=== PATIENT | female | born 1940 | race Caucasian/White ===

== ENCOUNTER 2025-10-09 08:35 | Day surgery (SDC) | payer MEDICARE ==
[~2025-10-09] VITALS: Ht 157.5 cm; Wt 66.0 kg
[~2025-10-09 08:35] MED LIST: 8 HOUR PAIN RE650 MG PO; ASPIRIN EC81 MG PO; CALCIUM600 MG PO; CEFAZOLIN SODIUM 2 GM in SODIUM CHLORIDE 0.9% 100 ML IV SCH; HEParin SOD (PORCINE) 5,000 UNIT/ML SDV SUB-Q SCH; IBLOOD GLUCOSE TEST STRIP 1 EA TEST VI PRN; ICAPS AREDS SO1 EACH PO; LACTATED RINGER'S 1,000 ML IV SCH; LEVOTHYROXINE125 MCG PO; LIDOCAINE HCL 1% 5 ML SDV INJ ONE; LIPITOR10 MG PO; NEURONTIN100 MG PO; OMEPRAZOLE20 MG PO; OXYBUTYNIN CHLOR5 MG PO; TYLENOL EXTRA500 MG PO
[2025-10-09 09:05] VITALS: BP 143/74
[2025-10-09] MEDS ORDERED: IBLOOD GLUCOSE TEST STRIP 1 EA TEST VI PRN (10:30)
[2025-10-09] MEDS ORDERED: NALOXONE HCL 0.4 MG SYR IV PRN (10:30)
[2025-10-09] MEDS ORDERED: fentaNYL citrate 50 MCG/ML SDV IV PRN (10:30)
[2025-10-09] MEDS ORDERED: Methylene Blue 100 MG/10 ML SDV ONE (11:38)
[2025-10-09] MEDS ORDERED: fentaNYL citrate 100 MCG/2 ML VIAL ONE ×2 (11:41→13:45)
[2025-10-09] MEDS ORDERED: LIDOCAINE HCL 2% 5 ML SDV ONE (11:41)
[2025-10-09] MEDS ORDERED: SODIUM CHLORIDE 0.9% 20 ML IV ONE (11:46)
[2025-10-09] MEDS ORDERED: GLUCAGON,HUMAN RECOMBINANT 1 MG/ML VIAL ONE (12:51)
[2025-10-09] MEDS ORDERED: LACTATED RINGER'S 1,000 ML IV ONE (13:00)
[2025-10-09] MEDS ORDERED: ACETAMINOPHEN 1,000 MG/100 ML VIAL ONE (13:32)
[2025-10-09] MEDS ORDERED: TYLENOL EXTRA500 MG PO (14:09)
[2025-10-09] MEDS ORDERED: MOTRIN IB200 MG PO (14:10)
[2025-10-09] MEDS ORDERED: PERCOCET 7.5-31 EACH PO (14:10)
--- NOTE | 2025-10-09 14:12 | NUR ---
10/09/25 1412 Chrissie Reece 1347 PT ARRIVED TO PACU PT MOANING AND RESTING IN BED. RN AND WEATHER REPORTER REASSURING PT AND TRYING TO REORIENT PT TO PACU. 1355 RN CONTINUES TO MINING CAPTAIN PT ON SLOW BREATHING AND RELAXING, PT DENIES PAIN AND NAUSEA. HOB INCREASED AND PT EATING ICE CHIP DUE TO DRY MOUTH. 1405 PT MORE RELAXED AND RESTING IN BED, PT ASKING QUESTIONS AND RN CONTINUES TO REORIENT PT TO PACU AND TIME. PT REPORTS TIGHTNESS IN SURGICAL SITE BUT NO PAIN. "I FEEL LIKE I CAN;T MOVE MY LEGS." SCD EDUCATION GIVEN AND PT MOVES LEG WITH NO PROBLEMS.
[2025-10-09] MEDS ORDERED: OXYCODONE/APAP 7.5/325 TAB PO PRN (14:15)
[2025-10-09] MEDS ORDERED: IBUPROFEN 600 MG TAB PO PRN (14:15)
[2025-10-09] MEDS ORDERED: ACETAMINOPHEN 500 MG TAB PO PRN (14:15)
[2025-10-09] MEDS ORDERED: LACTATED RINGER'S 1,000 ML IV SCH (14:15)
[2025-10-09] MEDS ORDERED: SEVOFLURANE 250 ML BTL INH ONE (14:24)
[2025-10-09 14:40] VITALS: BP 137/61
--- NOTE | 2025-10-09 14:48 | NUR ---
1443: PATIENT BACK IN DAY SURGERY ROOM FROM PACU. DENIES PAIN, BUT STATES SHE FEELS PRESSURE IN RIGHT BREAST. VS CHECKED. RIGHT BREAST AND RIGHT AXILLA DRESSING WITH SCANT AMOUNT OF DRAINAGE. IV SITE WNL. SCDs ON. FAMILY AT BEDSIDE. CALL LIGHT WITHIN REACH. TOLERATING WATER.
--- NOTE | 2025-10-09 15:16 | NUR ---
CHECKED PATIENT. GIVEN COLLEEN CRACKERS TO EAT. PATIENT STATES SHE'S STARTING TO FEEL PAIN AT THE SURGICAL SITES. FAMILY AT BEDSIDE. CALL LIGHT DAPHNE JUAREZ.
--- NOTE | 2025-10-09 15:43 | NUR ---
PATIENT ASSISTED OOB AND TO BATHROOM. VOID WITHOUT DIFFICULTY. GAIT STEADY TO AND FROM ROOM. PATIENT C/O 3/ PAIN IN RIGHT BREAST AND ARMPIT. MEDICATED FOR PAIN WITH 1 TAB OF PERCOCET. FAMILY AT BEDSIDE. CALL LIGHT WITHIN REACH.
[2025-10-09 16:00] VITALS: BP 131/65
--- NOTE | 2025-10-09 16:13 | NUR ---
DISCHARGE INSTRUCTIONS GIVEN TO PATIENT AND FAMILY. ALL QUESTIONS ANSWERED. PATIENT WILL WORK ON GETTING DRESSED WITH HELP FROM FAMILY.
--- NOTE | 2025-10-09 16:30 | NUR ---
1620: PATIENT STATES SHE FEELS PAIN PILL IS STARTING TO WORK. REQUESTS TO GO HOME. 1622: IV DC'D WNL. TIP INTACT. DRESSING APPLIED. 1624: PATIENT DISCHARGED TO HOME VIA WHEELCHAIR WITH FAMILY MEMBERS.
--- NOTE | 2025-10-10 09:06 | OR ---
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 PROCEDURES: 1. Injection of methylene blue for sentinel lymph node identification. 2. Right deep axillary sentinel lymph node biopsy. 3. Right central breast partial mastectomy and oncoplastic closure (tissue transfer technique). ANESTHESIA: General LMA, Mariposa Charity, COMMUNITY DEVELOPMENT WORKER and local 10 mL of 0.25% Marcaine with epinephrine. INDICATION: This 85-year-old white woman is in surprisingly good health and is a patient of Dr. Jovita Redmond. The patient was found to have a central breast mass and mammogram confirmed findings of suspicion, ultrasound performed and biopsy performed confirming infiltrating ductal breast carcinoma, ER, IL positive, HER-2/diana equivocal. I have reviewed the options of management with the patient and her daughter who attends to her. She opts for partial mastectomy, sentinel lymph node biopsy, anticipating consideration for radiation therapy postoperatively despite her advanced age. She understands the risk of operation including but not limited to bleeding, infection, pain, cosmetic deformity, need for additional treatment, as well as possible re-excision depending on margins. Understanding that, she wished to proceed. FINDINGS: The uptake of radionuclide on the film looked quite good, though in practice was slightly challenging. Ultimately, at least one sentinel lymph node was identified which did not have avid uptake of radiotracer or dye, but did have some signal and was rather suspicious axillary. It measured 1.5 to 2 cm and was quite firm, though smooth. There were no other suspicious nodes in the axilla. As regards the tumor, it was a subareolar tumor and took up all of the nipple-areolar complex and additional possibly reactive tissue surrounding this area. A wide resection was undertaken in the central breast. Oncoplastic closure required mobilization of superior breast pedicle and excision of Electronically Signed By: VASILE BORREGO MD 10/10/25 0906 PATIENT NAME: STAN REED OPERATIVE REPORT DATE OF : 40 REPORT #: [id number] PHYSICIAN: VASILE BORREGO MD PCP: JOVITA REDMOND MD REPORT IS CONFIDENTIAL AND NOT TO BE RELEASED WITHOUT AUTHORIZATION [facility] [address] [place] [id number] Signed additional breast tissue in the skin in the medial aspect far removed from the actual site. Of note, the excision site was marked with clips for future reference. DESCRIPTION OF PROCEDURE: The patient was brought to the operating room, given a general anesthetic. Preoperative antibiotic Ancef was given. Sequential compression device stockings used and heparin subcutaneously administered. 1 mL of 50% methylene blue dye was injected in the subepithelial space in the right periareolar area. The patient had been received from Radiology having undergone radionuclide injection and a radiograph did show at least one sentinel lymph node was evident in the axilla. The breast was then prepared with a chlorhexidine solution as was the axilla and draped sterilely. Interrogation of the right axilla with the C-Trak probe was surprisingly difficult to identify uptake. The machine was tested, batteries and so forth were re-examined and ultimately a better signal was noted. A small transverse incision was made in the axilla and dissection was carried through the subcutaneous tissue of the axilla with electrocautery. When the axillary envelope was encountered, it was incised carefully as well. Using blunt and electrocautery dissection, the axilla was widely opened, not identifying any sentinel lymph node initially nor any blue dye. Various maneuvers were made with the machine itself for sensitivity, ultimately found to be best on a 1/10x magnification of signal and an area was identified where further dissection was undertaken with blunt dissection. Ultimately, a palpable very firm lymph node and surrounding soft tissue was noted. This was excised and applying clips to the area. Upon further examination, it did have radionuclide uptake and would be considered sentinel lymph node. Additional evaluation of the axilla showed no other candidates for sentinel lymph node and on that basis, the wound was then packed with laparotomy pack. Attention was turned to the primary lesion in the central breast. The confines of the lesion were defined and marked and it was considered a bit bigger than previously. No doubt some desmoplastic reaction had occurred in relation to the tumor. The wide resection of that into continuity with the tumor was anticipated. An elliptical incision was made including the nipple-areolar complex over which the tumor was identified, was undertaken. Electrocautery was used to develop superior, inferior, medial and lateral flaps and excision of the tissue essentially down to the pectoralis fascia. Specimen was oriented with sutures and short stitch superior and long stitch laterally. Irrigation was undertaken. Hemostasis assured with electrocautery. Sterile water was used. Given a rather large central breast excision undertaken, an oncoplastic closure was deemed appropriate to improve contour of the breast. On that basis, the superior pedicle breast was freed from the chest wall with electrocautery and blunt dissection. The lamina to mobilize inferiorly to the napaimute inferior pedicle. The Electronically Signed By: VASILE BORREGO MD 10/10/25 0906 PATIENT NAME: STAN REED OPERATIVE REPORT DATE OF : 40 REPORT #: [id number] PHYSICIAN: VASILE BORREGO MD PCP: JOVITA REDMOND MD REPORT IS CONFIDENTIAL AND NOT TO BE RELEASED WITHOUT AUTHORIZATION [facility] [address], [place] [address] Signed wound was then closed in layers with interrupted 2-0 Vicryl providing good breast contour. The medial aspect was distorted breast tissue as might be expected and the area of redundancy marked and excised much like excising the dog-ear of skin but with parenchyma beneath it. This allowed for much more acceptable contour. The wound was further closed with interrupted 2-0 Vicryl in deep dermal layer and a running subcuticular 3-0 Vicryl for the skin. Steri-Strips were applied as was an Acticoat dressing. Reinspection of the axilla was undertaken showing no sign of bleeding or other problem. The wound was closed in layers with interrupted 2-0 Vicryl and running subcuticular 3-0 Vicryl for the skin. Steri-Strips were applied as well as Acticoat dressing there. The patient was ultimately extubated and transferred to recovery room in good condition and suffered no complication. Sponge, needle, and instrument counts reported as correct x3. MD TITUS Vivar/ZULMA /[id number] cc: Jovita Redmond MD Copies: ~ Electronically Signed By: VASILE BORREGO MD 10/10/25 0906 PATIENT NAME: DEREKSTAN ARTHUR OPERATIVE REPORT DATE OF : 40 REPORT #: [id number] PHYSICIAN: VASILE BORREGO MD PCP: JOVITA REDMOND MD REPORT IS CONFIDENTIAL AND NOT TO BE RELEASED WITHOUT AUTHORIZATION
--- NOTE | 2025-10-15 14:12 | PATH ---
[facility] [address] [facility] [place], [place] [address] Signed SPECIMEN(S): A RIGHT BREAST SENTINEL LYMPH NODE SPECIMEN(S): B NIPPLE AND RIGHT BREAST MASS SPECIMEN(S): C ADDITIONAL RIGHT MEDIAL BREAST TISSUE SPECIMEN SOURCE: A. RIGHT BREAST SENTINEL LYMPH NODE B. NIPPLE AND RIGHT BREAST MASS C. ADDITIONAL RIGHT MEDIAL BREAST TISSUE CLINICAL HISTORY: Right breast CA, subareolar FINAL PATHOLOGIC DIAGNOSIS: A. Allred lymph node per requisition: - One lymph node with metastatic carcinoma and extranodal extension (11/20). - See checklist. B. Nipple and right breast mass, mastectomy: - Invasive carcinoma of no special type (ductal) - Intradermal carcinoma with dermal lymphatic invasion and focal pagetoid epithelial spread. - See checklist. C. Additional right medial breast tissue: - Benign skin and breast tissue, negative for carcinoma. INVASIVE CARCINOMA OF THE BREAST: Resection Applies To: Specimens A, B, and C SPECIMEN Procedure: Total mastectomy Specimen Laterality: Right TUMOR Histologic Type: Invasive carcinoma of no special type (ductal) Glandular (Acinar) / Tubular Differentiation: Score 3 Nuclear Pleomorphism: Score 2 Mitotic Rate: Score 1 Overall Grade: Grade 2 (scores of 6 or 7) Tumor Size: Greatest dimension of largest invasive focus (Millimeters) - 60 x 45 x 24 mm Ductal Carcinoma In Situ (DCIS): Not identified Tumor Extent Tumor Extent: Skin is present and involved PATIENT NAME: STAN LARSON PATHOLOGY DATE OF : 40 REPORT #: [id number] PHYSICIAN: NANY PATHOLOGY PCP: KRISTIE RICHMOND MD REPORT IS CONFIDENTIAL AND NOT TO BE RELEASED WITHOUT AUTHORIZATION [facility] [address] [place], [place] [address] Signed Skin Invasion: Carcinoma directly invades into the dermis or epidermis without skin ulceration (this does not change the T classification) Skin Satellite Foci: Satellite foci not identified Lymphatic and / or Vascular Invasion: Present Dermal Lymphatic and / or Vascular Invasion: Present Treatment Effect in the Breast: No known presurgical therapy MARGINS Margin Status for Invasive Carcinoma: Suspicious for involvement of the posterior/inferior margin. See comment. Margin Comment: The tumor extends and focally abut the posterior/inferior margin in several less than 1 mm foci on blocks B4 and B6. Tissue folding and processing limitations on multiple additional sections limit further evaluation, and these areas are considered suspicious for margin involvement. REGIONAL LYMPH NODES Regional Lymph Node Status: Tumor present in regional lymph node(s) Number of Lymph Nodes with Macrometastases: 1 Number of Lymph Nodes with Micrometastases: 0 Number of Lymph Nodes with Isolated Tumor Cells: 0 Size of Largest Adina Metastatic Deposit: Greater than - 32 mm Extranodal Extension: Present, greater than 2 mm Total Number of Lymph Nodes Examined (sentinel and non-sentinel): 1 Number of Allred Nodes Examined: 1 DISTANT METASTASIS Distant Site(s) Involved: Cannot be determined pTNM CLASSIFICATION (AJCC 8th Edition) pT Category: pT3 pN Category: pN1a N Suffix: (sn) Breast Biomarker Testing Performed on Previous Biopsy: Estrogen Receptor (ER) Status: Positive (greater than 10% of cells demonstrate nuclear positivity) Percentage of Cells with Nuclear Positivity: 91-100% Progesterone Receptor (PgR) Status: Negative HER2 (by immunohistochemistry): Equivocal (Score 2+) HER2 (by in situ hybridization): Positive (amplified) Testing Performed on Case Number: [id number] [facility] MICROSCOPIC EXAMINATION: Histologic sections of all submitted blocks are examined by light microscopy. PATIENT NAME: STAN LARSON PATHOLOGY DATE OF : 40 REPORT #: [id number] PHYSICIAN: ANNY FERRER PCP: KRISTIE RICHMOND MD REPORT IS CONFIDENTIAL AND NOT TO BE RELEASED WITHOUT AUTHORIZATION [facility] [address] [place] [phone] Signed These findings, together with the gross examination, support the pathologic diagnosis. Immunostains are performed with appropriate controls on block B1 and show the following: Cytokeratin 5/6: Positive in squamous epithelial cells. CK7: Positive in tumor cells. Melan-A: Positive in melanocytes. A cytokeratin AE1/3 immunostain is performed with appropriate controls on block B4 and positive within the epithelial cells supporting the diagnosis. [facility] GROSS DESCRIPTION: A. The specimen, labeled and designated "Matheus Larson, sentinel lymph node per requisition," is received in formalin and consists of a 3.2 x 2.7 x 1.2 cm portion of yellow lobulated fibroadipose tissue. The specimen is palpated revealing a 2 x 1.4 x 1 cm mann-white lymph node. The specimen is serially sectioned revealing a white homogenous cut surface. No biopsy clip is identified. The specimen is entirely submitted in cassette A1. B. The specimen, labeled and designated "Rosalinda Larson., nipple and right breast mass per requisition," is received in formalin and consists of a 216 g, 11.4 x 8.5 x 5.6 cm right breast. The nipple areolar complex measures 2.6 x 2.5 cm and has a 1.3 x 1.2 cm firm slightly retracted nipple. The surrounding skin measures 8 x 5.6 cm and has a area of blue discoloration on the superior lateral aspect. The remainder of the skin is mann-pink and unremarkable. There are no discrete areas of ulceration. The specimen is oriented as follows: Superior�Short stitch, lateral�long stitch. The specimen is subsequently inked as follows: Superior�blue, inferior�green, posterior�overlaid in black. A 4 x 3.6 x 2.4 cm irregularly-shaped firm portion of yellow lobulated adipose tissue with dense white fibrous tissue scattered throughout along with a 0.7 cm hemorrhagic cavity. This area is abutting the nipple, and comes within 2 cm of the superior and posterior margin, and greater than 3 cm away from all remaining margins. There is no biopsy clip identified. The background parenchyma is comprised of 80% yellow lobulated adipose and 30% white-pink fibrous tissue. Employee Placement Specialist sections are submitted as follows: Cassette Summary: (B1) nipple, serially sectioned perpendicular to skin margin (B2) areola, shave, serially sectioned PATIENT NAME: STAN LARSON PATHOLOGY DATE OF : 40 REPORT #: [id number] PHYSICIAN: ANNY FERRER PCP: KRISTIE RICHMOND MD REPORT IS CONFIDENTIAL AND NOT TO BE RELEASED WITHOUT AUTHORIZATION [address] [address] Signed (B3-B8) fullface middle slice overlying nipple (B9) medial margin, serially sectioned (B10) lateral margin, serially sectioned Time of collection: 1:04 PM 10/09/2025. Time into formalin: 1:05 PM 10/09/2025. Processor load time: 6 PM 10/10/2025. Ischemic time: 1 minute Total fixation time in formalin: 28 hours 55 minutes The ASCO/CAP guidelines related to HER2 and hormone receptor testing in breast specimens have been met and the specimen has been placed in formalin within one hour and fixed in 10% neutral buffered formalin for 6 to 72 hours. C. The specimen, labeled and designated "Neo, C., additional right medial breast tissue," is received in formalin and consists of a 25 g, 6.4 x 5.4 x 2.4 cm portion of unoriented yellow lobulated adipose tissue with a 4.8 x 3.3 cm triangular shaped portion of mann-pink skin. The portion of skin without any blue ink is designated the lateral margin and is subsequently inked blue. The remainder of the tissue is inked green at the posterior margin inked black the specimen is serially sectioned revealing no discrete masses or lesions. No biopsy clip is identified. Employee Placement Specialist sections are submitted as follows: Cassette Summary: (C1-C2) fullface slice from suspected medial to lateral aspect (C3-C4) artists' booking representative sections of tissue (C5-C6) fullface slice from suspected medial to lateral aspect AA (under the direct supervision of a pathologist) The Gross Description was prepared using a voice recognition system. The report was reviewed for accuracy; however, sound-alike word errors, addition and/or deletions may occur. If there is any question about this report, please contact Client Services. ADDITIONAL NOTES: Immunohistochemical and/or in situ hybridization studies if performed in this case included appropriate positive controls that reacted as expected. This test was developed and its performance characteristics determined by [facility]. It has not been cleared or approved by the U.S. Food and Drug Administration. The FDA has determined that such clearance or approval is not necessary. This test is used for clinical purposes. It should not be regarded PATIENT NAME: STAN LARSON PATHOLOGY DATE OF : 40 REPORT #: [id number] PHYSICIAN: ANNY PATHOLOGY PCP: KRISTIE RICHMOND MD REPORT IS CONFIDENTIAL AND NOT TO BE RELEASED WITHOUT AUTHORIZATION [address] [address] Signed as investigational or for research. [facility] is certified under the Clinical Laboratory Improvement Amendments of 1988 (CLIA) as qualified to perform high complexity clinical laboratory testing. PERFORMING LABORATORY: Technical component was performed by [email or web address], [address] [place] [id number] (CLIA# [id number]). Professional interpretation was performed by [email or web address] - [place] - [address] [place] [address] (CLIA#: [id number]). Diagnostician: Giovanni Butler MD Pathologist Electronically Signed 10/15/2025 Copies: ~ PATIENT NAME: STAN LARSON PATHOLOGY DATE OF : 40 REPORT #: [id number] PHYSICIAN: ANNY FERRER PCP: KRISTIE RICHMOND MD REPORT IS CONFIDENTIAL AND NOT TO BE RELEASED WITHOUT AUTHORIZATION
== END 2025-10-09 16:24 | disposition home or self-care (01) ==
LOC: DS 08:35 → NUC 10:00 → EDSTATUS 10:00 → DS 10:00
PROVIDERS: ATTEND Surgery
PROC: 0HBT0ZZ Excision of Right Breast, Open Approach (ICD-10-PCS; principal; 2025-10-09 10:45)
PROC: 0H9T0ZX Drainage of Right Breast, Open Approach, Diagnostic (ICD-10-PCS; 2025-10-09 10:45)
DX: C50.111 Malignant neoplasm of central portion of right female breast (principal); C77.3 Secondary and unspecified malignant neoplasm of axilla and upper limb lymph nodes; Z17.0 Estrogen receptor positive status [ER+]; Z17.21 Progesterone receptor positive status; Z17.31 Human epidermal growth factor receptor 2 positive status; E03.9 Hypothyroidism, unspecified; Z90.710 Acquired absence of both cervix and uterus; Z96.643 Presence of artificial hip joint, bilateral
CPT/HCPCS: 00400; 78195; 88307; 88341; 88342; A9541; J0131; J0688; J1610; J1644; J2003; J2704; J3010; J3490; J7121

== ENCOUNTER 2025-11-04 09:07 | Day surgery (SDC) | payer MEDICARE ==
[~2025-11-04] VITALS: Ht 157.5 cm; Wt 65.9 kg
[2025-11-04] VITALS (8 sets, daily range): BP systolic 111–154; BP diastolic 56–73
[~2025-11-04 09:07] MED LIST changes: +MOTRIN IB200 MG PO; +PERCOCET 7.5-31 EACH PO
[2025-11-04] MEDS ORDERED: fentaNYL citrate 100 MCG/2 ML VIAL ONE ×2 (11:23→11:26)
[2025-11-04] MEDS ORDERED: DEXAMETHASONE SOD PHOS 4 MG/ML VIAL ONE ×2 (11:27→12:06)
[2025-11-04] MEDS ORDERED: ACETAMINOPHEN 1,000 MG/100 ML VIAL ONE (11:27)
[2025-11-04] MEDS ORDERED: LIDOCAINE HCL 2% 5 ML SDV ONE ×2 (11:27→11:28)
[2025-11-04] MEDS ORDERED: MAGNESIUM SULFATE 1 GM/2 ML VIAL ONE (11:28)
[2025-11-04] MEDS ORDERED: fentaNYL citrate 50 MCG/ML SDV IV PRN (12:45)
[2025-11-04] MEDS ORDERED: NALOXONE HCL 0.4 MG SYR IV PRN (12:45)
[2025-11-04] MEDS ORDERED: IBLOOD GLUCOSE TEST STRIP 1 EA TEST VI PRN (12:45)
[2025-11-04] MEDS ORDERED: HYDROmorphone HCL 1 MG/ML SYR IV PRN (12:45)
[2025-11-04] MEDS ORDERED: LACTATED RINGER'S 1,000 ML IV SCH (13:45)
[2025-11-04] MEDS ORDERED: MORPHINE SULFATE 10 MG/ML VIAL IV PRN (13:45)
[2025-11-04] MEDS ORDERED: KETOROLAC TROMETHAMINE 30 MG/ML VIAL IV PRN (13:45)
[2025-11-04] MEDS ORDERED: CEFAZOLIN SODIUM 2 GM in SODIUM CHLORIDE 0.9% 100 ML IV SCH (14:00)
[2025-11-04] MEDS ORDERED: ACETAMINOPHEN 500 MG TAB PO SCH (14:00)
--- NOTE | 2025-11-04 14:09 | NUR ---
11/04/25 1409 Shanell,Chrissie 1334 PT ARRIVED TO PACU EYES OPEN AND RESP EVEN AND UNLABORED. PT LOOKING AROUND ROOM AND RESP INCREASED IN RATE. RN STARTS TO REORIENT PT TO PACU. PT DENIES PAIN AND NAUSEA. 1338 O2 REMOVED. PT REPORTS HER ARM HURTING, BY HER ELBOW AND STARTS TO MOVE RIGHT ARM AROUND IN BED. 1346 MD AT BEDSIDE AND ENCOURAGED TO MOVE RIGHT ARM. EDUCATION GIVEN ON ARM POSITIONING DURING SURGERY. PT CONTINUES TO MOVE ARM AROUND SLOWLY. 1350 PT SIPPING WATER AND HOB INCREASED. RN ENCOURAGES PT TO SLOW BREATHING DOWN AND TAKE SLOW DEEP BREATHES. PT ABLE TO DO SO. 1357 "IT STARTING TO HURT UNDER MY ARM." PT RATE PAIN 5/10. PAIN MEDICATION GIVEN. ICE PACK PLACED UNDER ELBOW AREA OF RIGHT ARM.
--- NOTE | 2025-11-04 14:23 | NUR ---
PATIENT BROUGHT BY BED TO [facility] BY MEGHAN ACOSTA. RECIEVED VERBAL REPORT FROM RODRICK CHRISTIANSON. JU DRAINS EPTIED/DOCUMENTED. SON IN ROOM. PATIENT ON CPOX, SCD'S ON AND CIRCULATING. PATIENT IS AWAKE AND ALERT. VS OBTAINED AND RECORDED. RN'S REMAIN IN ROOM. CALL LIGHT IN REACH.
--- NOTE | 2025-11-04 15:04 | NUR ---
TC RENEE DOLAN IN PHARMACY FOR POSSIBLE RETIMING ON ABX AND WAS INFORMED OF DR ORDERS WERE CORRECT AND TO GIVE ABX AT THIS TIME.
--- NOTE | 2025-11-04 15:40 | NUR ---
HOURLY ROUNDING CHECKED ON PATIENT, GUEST SITTING IN RECLINER CHAIR. NO REQUST FROM PATIENT AT THIS TIME. CALL LIGHT HAS BEEN PLACED WITHIN REACH AND BOARD HAS BEEN UPDATED
[2025-11-04] MEDS ORDERED: SEVOFLURANE 250 ML BTL INH ONE (15:57)
[2025-11-04] MEDS ORDERED: OXYBUTYNIN CHLO10 MG PO (16:46)
--- NOTE | 2025-11-04 17:21 | NUR ---
MED REC COMPLETE
--- NOTE | 2025-11-04 18:23 | NUR ---
VS/I&O'S OBTAINED AND RECORDED. PATIENT AWAKE AND ALERT LAYING IN BED WATCHING TV. CPOX AT BEDSIDE 92% RA. IVF INFSUING WITHOUT DIFFICULTY. SCD'S ON BLE CIRCULATING. PATIENT DENIES NEEDS AT THIS TIME. CALL LIGHT IN REACH.
--- NOTE | 2025-11-04 19:15 | NUR ---
REPORT RECEIVED FROM DEVORA ACOSTA AND NUNU RN. BOARD UPDATED. BLANKET PROVIDED. pt DENIES ANY OTHER NEEDS AT THIS TIME. CALL LIGHT WITHIN REACH.
--- NOTE | 2025-11-04 21:10 | NUR ---
ASSESSMENT AND VITAL SIGNS DONE. DRESSING CDI. JU #1 AND #2 EMPTIED. pt C/O 12/30 PAIN. WATER REFRESHED. SCHEDULED MEDS ADMISTERED. pt DENIES ANY OTHER NEEDS AT THIS TIME. CALL LIGHT WITHIN REACH.
--- NOTE | 2025-11-04 23:02 | NUR ---
IN RM TO CHECK ON pt. pt CPOX WAS ALARMING. pt DESATTING DOWN TO 84%. pt PLACED ON 1LNC. pt DENIES ANY OTHER NEEDS AT THIS TIME. pt DENIES ANY PAIN AT THIS TIME. CALL LIGHT WITHIN REACH.
[2025-11-05] VITALS (7 sets, daily range): BP systolic 107–138; BP diastolic 57–66
--- NOTE | 2025-11-05 01:33 | NUR ---
IN RM TO DO pt VITAL SIGN WITH GORDON NGUYEN. pt UP TO THE BR. SBA. pt DENIES ANY PAIN AT THIS TIME. WATER REFRESHED. pt DENIES ANY OTHER NEEDS AT THIS TIME. CALL LIGHT WITHIN REACH.
--- NOTE | 2025-11-05 03:30 | NUR ---
pt RESTING IN THE BED. pt DENIES ANY NEEDS AT THIS TIME. CALL LIGHT WITHIN REACH.
--- NOTE | 2025-11-05 04:23 | NUR ---
pt CALLED TO USE THE BR. pt SBA FOR LINE/TUBE MANAGEMENT. pt DENIES ANY OTHER NEEDS AT THIS TIME. CALL LIGHT WITHIN REACH. pt BACK TO BED.
[2025-11-05 05:30] LABS: BASOPHILS 0.1 % (0.1-1.2); EOSINOPHILS 0 % (0.7-5.8); LYMPHOCYTES 8.4 % (19.3-51.7); MCH 30.5 PG (25.6-32.2); MCHC 32.4 g/dL (32.2-35.5); MCV 94.2 fL (79.4-94.8); MONOCYTES 8.5 % (4.7-12.5); NEUTROPHILS 82.6 % (34.0-71.1); RBC 3.25 M/uL (3.93-5.22)
--- NOTE | 2025-11-05 07:25 | NUR ---
RECEIVED VERBAL REPORT FROM KARLA BARRERA. PATIENT LAYING IN BED AWAKE AND ALERT, ABLE TO ANSWER QUESTIONS APPROPRIATLY. CPOX AT BEDSIDE 94% RA. PATIENT DENIES NEEDS AT THIS TIME. CALL LIGHT IN REACH.
--- NOTE | 2025-11-05 08:18 | NUR ---
PATIENT IN BED AT THIS TIME. EMISSIONS TESTING TECHNICIAN CHARTED HOURLY ROUNDS. PATIENT REFUSED CHAIR AT THIS TIME, PATIENT WILLING TO GET IN CHAIR AFTER BREAKFAST. CALL LIGHT WITHIN REACH, NO FURTHER NEEDS.
--- NOTE | 2025-11-05 09:42 | NUR ---
PATIENT IN CHAIR AT THIS TIME. CLASSROOM COORDINATOR CHARTED VITALS AND I&O'S. CALL LIGHT WITHIN REACH, NO FURTHER NEEDS.
--- NOTE | 2025-11-05 10:20 | NUR ---
ASSESSMENT COMPPLETED AND DOCUMENTED. DRESSING IS INTACT WITH PINPOINT DRAINIAGE ON UPPER ACETOCTE. PATIENT DENIES PAIN AT THIS TIME. BREAST CARE MET WITH PATIENT AND EDUCATION. JU DRAINS EMPTIED AND DOCUMENTED. IFV INFUSING WITHOUT DIFFICULTY. PATIENT DENIES NEEDS AT THIS TIME. CALL LIGHT IN REACH. SON AT BEDSIDE.
--- NOTE | 2025-11-05 10:33 | NUR ---
UR CLINICAL REVIEW: 2 MN FOR VERSALUS-PER CLINICAL EVALUATOR MEETS OBS FOR MASTECTOMY WITH LYMPH NODE RESECTION WITH NEED FOR PAIN CONTROL AND MONITORING MEDICARE OBS 11/04/25 @ 1343 ORDER MATCHES REG NO AUTH REQUIRED PER MEDICARE GUIDELINES DISCHARGE TO HOME 11/05/25 11/06/25
--- NOTE | 2025-11-05 11:30 | NUR ---
DR BORREGO IN PATIENT ROOM UPDATING PATIENT. ALL QUESTIONS ANSWERED. CALL LIGHT IN REACH.
[2025-11-05] MEDS ORDERED: ACETAMINOPHEN500 MG PO (12:14)
--- NOTE | 2025-11-05 12:50 | NUR ---
REMOVED L AC IV FOR D/C HOME PER DR ORDERS. CATH TIP INTACT, PATIENT TOLERATED WELL.
--- NOTE | 2025-11-05 12:50 | OR ---
[facility] [address] [facility] [place], [place] [address] Signed DATE OF OPERATION: 11/04/2025 SURGEON: Vasile Borrego MD PREOPERATIVE DIAGNOSES: 1. Right infiltrating ductal breast carcinoma, status post partial mastectomy and sentinel lymph node biopsy. 2. Positive deep margin; unexpectedly large primary tumor greater than 6 cm. 3. Positive sentinel lymph node with extracapsular extension. POSTOPERATIVE DIAGNOSES: 1. Right infiltrating ductal breast carcinoma, status post partial mastectomy and sentinel lymph node biopsy. 2. Positive deep margin; unexpectedly large primary tumor greater than 6 cm. 3. Positive sentinel lymph node with extracapsular extension. 4. Multiple additional axillary lymph nodes suspicious for metastatic disease. PROCEDURE: Right modified radical mastectomy with level 3 axillary adenectomy. ANESTHESIA: General LMA, Titus Meredith CRNA. INDICATION: This 85-year-old white woman is a patient of Dr. Jovita Redmond. She is originally found to have a breast cancer in the inferior areolar area, which on imaging study showed it to be about 2 cm. Clinical examination showed no axillary adenopathy and the nipple-areolar complex was thickened and chronically inflamed. She underwent central partial mastectomy with sentinel lymph node biopsy. The sentinel lymph node that was identified showed metastatic disease with extracapsular extension. The breast excised was extremely wide and deep and down to the pectoralis fascia, but was considered to have a deep inferior positive margin. On the basis of these findings and the finding that the tumor itself was greater than 6 cm (not known preoperatively at all), I have recommended modified radical mastectomy for both local control of the breast and additional staging of the axilla and possible control in the axilla. The risk of bleeding, infection, cosmetic deformity, need for additional treatment and so forth were all reviewed in detail. She understands and wished to proceed. FINDINGS: The breast was large and pendulous despite a large amount of central breast having been Electronically Signed By: VASILE BORREGO MD 11/05/25 1250 PATIENT NAME: STAN REED OPERATIVE REPORT DATE OF : 40 REPORT #: [id number] PHYSICIAN: VASILE BORREGO MD PCP: JOVITA REDMOND MD REPORT IS CONFIDENTIAL AND NOT TO BE RELEASED WITHOUT AUTHORIZATION [facility] [address] [place] [id number] Signed excised. There was no evidence of direct extension into the pectoralis fascia as regards to the breast in the deep margin. The axilla had multiple lymph nodes that were quite firm and highly suspect for metastatic disease. Axillary dissection was carried to a level 3 area where there was no remaining suspicious adenopathy. The long thoracic and thoracodorsal neurovascular bundles were identified and preserved. DESCRIPTION OF PROCEDURE: The patient was brought to the operating room, given a general anesthetic by LMA technique. Preoperative antibiotic Ancef was given. Sequential compression device stockings were used. The right breast and axilla was prepared with chlorhexidine solution and draped sterilely. An elliptical excision was made incorporating the previous incision from the central breast excision. Dissection carried through the dermis with electrocautery. Superior and inferior flaps were developed with sharp technique only the occasional securing of blood vessels and cautery for controlling them. The breast was then excised from the superior to inferior and medial to lateral direction, leaving the axillary contents in continuity. Palpation and dissection were undertaken in this area showing rock-hard lymph nodes more so than we noted at her previous operation. The long thoracic nerve was identified as was the thoracodorsal neurovascular bundle. Enough tissue was taken between these and somewhat superficial to them and in any area that had lymph nodes that were slightly suspicious. There were suspicious nodes extending to the superior axilla and these were taken in continuity. By conclusion, the subpectoral lymph nodes including Karen's nodes were excised as was an apical lymph node to the axilla. The specimen was sent in continuity for final pathology. Irrigation was undertaken with sterile water. Minimal residual bleeding was secured with electrocautery. Clips had been used to secure small vessels during the course of dissection. The axillary vein and thoracodorsal neurovascular bundle and long thoracic nerve were easily identified and well preserved. Photograph was taken. Two separate stab incisions were made, one to allow for passing of 7 mm Haris drains, one placed in the axilla, the other beneath the flap most on the medial aspect. They were secured to skin with nylon suture. The flaps were completely viable and hemostasis assured with electrocautery there as well. The wound was then closed with interrupted 2-0 Vicryl in deep dermal area. Steri-Strips were applied as was an Acticoat dressing. Blood loss was estimated at no more than 100 mL. Sponge, needle, and instrument counts were reported as correct x3. Vasile Borrego MD JM/MODL Electronically Signed By: VASILE BORREGO MD 11/05/25 1250 PATIENT NAME: STAN REED OPERATIVE REPORT DATE OF : 40 REPORT #: [id number] PHYSICIAN: VASILE BORREGO MD PCP: JOVITA REDMOND MD REPORT IS CONFIDENTIAL AND NOT TO BE RELEASED WITHOUT AUTHORIZATION [facility] [address] [place] [address] Signed /[id number] cc: MD Andre Reveles MD Juno Choe, MD, PH.D. Copies: ANDRE MANN MD, JUNO MD ~ Electronically Signed By: VASILE BORREGO MD 11/05/25 1250 PATIENT NAME: STAN REED OPERATIVE REPORT DATE OF : 40 REPORT #: [id number] PHYSICIAN: VASILE BORREGO MD PCP: JOVITA REDMOND MD REPORT IS CONFIDENTIAL AND NOT TO BE RELEASED WITHOUT AUTHORIZATION
== END 2025-11-05 13:35 | disposition home or self-care (01) ==
LOC: DS 09:07 → MS 14:20 → DS 11-05 13:35
PROVIDERS: ATTEND Surgery
PROC: 0HTT0ZZ Resection of Right Breast, Open Approach (ICD-10-PCS; principal; 2025-11-04 11:40)
PROC: 07T50ZZ Resection of Right Axillary Lymphatic, Open Approach (ICD-10-PCS; 2025-11-04 11:40)
DX: C50.811 Malignant neoplasm of overlapping sites of right female breast (principal); C77.3 Secondary and unspecified malignant neoplasm of axilla and upper limb lymph nodes; N64.1 Fat necrosis of breast; N60.11 Diffuse cystic mastopathy of right breast; E03.9 Hypothyroidism, unspecified; Z17.0 Estrogen receptor positive status [ER+]; Z17.22 Progesterone receptor negative status; Z17.31 Human epidermal growth factor receptor 2 positive status; Z96.643 Presence of artificial hip joint, bilateral
CPT/HCPCS: 00404; 36415; 85025; 88309; A9270; J0131; J0688; J1100; J1644; J2003; J2405; J2704; J3010; J3475; J7121

== ENCOUNTER 2025-11-19 14:04 | Emergency (ER) | payer MEDICARE ==
[~2025-11-19] VITALS: Ht 157.5 cm; Wt 65.8 kg
--- OUTSIDE RECORDS SUMMARY | ~2025-11-19 | XMS | Continuity of Care Document ---
Demographics + + + | Address | [address] | | | [place] [address] | + + + | Preferred Language | Unknown | + + + | Marital Status | | + + + | Confucianist Affiliation | Unknown | + + + | Race | White | + + + | Ethnic Group | Not or | + + + Author + + + | Author | [facility] | + + + | Organization | [facility] | + + + | Address | [address] | | | [place] [address] | + + + | Phone | | + + + Care Team Providers + + + + | [employer] Counselor Name | Role | Phone | + + + + Unavailable | Unavailable | + + + + Unavailable | Unavailable | + + + + Allergies No information. Encounters No information. Functional Status No information. Immunizations + + + + | date | description | facility | + + + + | (no date) | No vaccine administered | [facility] | | | | [facility] | + + + + Medications + + + + | date | description | facility | + + + + | 2025-10-09 00:00 | OXYCODONE | [facility] | | | HCL/ACETAMINOPHEN | [facility] | + + + + | 2025-10-09 00:00 | acetaminophen 325 MG / | [facility] | | | oxycodone hydrochloride 7.5 | [facility] | | | MG Oral T | | + + + + | (no date) | GABAPENTIN | [facility] | [facility] | + + + + | (no date) | gabapentin 100 MG Oral | [facility] | | | Capsule [Neurontin] | [facility] | + + + + | (no date) | 8 HR acetaminophen 650 MG | [facility] | | | Extended Release Oral | [facility] | | | Tablet | | + + + + | (no date) | ACETAMINOPHEN | [facility] | | | | [facility] | + + + + | (no date) | OMEPRAZOLE | [facility] | | | | [facility] | + + + + | (no date) | omeprazole 20 MG Delayed | [facility] | | | Release Oral Capsule | [facility] | + + + + | (no date) | ACETAMINOPHEN | [facility] | | | | [facility] | + + + + | 2025-10-09 00:00 | AC[facility]AMINOPHEN | [facility] | [facility] | + + + + | 2025-11-05 00:00 | ACETAMINOPHEN | [facility] | | | | [facility] | + + + + | (no ) | acetaminophen 500 MG Oral | [facility] | | | Tablet | [facility] | + + + + | 2025-10-09 00:00 | acetaminophen 500 MG Oral | [facility] | | | Tablet | [facility] | + + + + | 2025-11-05 00:00 | acetaminophen 500 MG Oral | [facility] | | Tablet | [facility] | + + + + | (no ) | CALCIUM CARBONATE | [facility] | | | | [facility] | + + + + | (no ) | calcium carbonate 1500 MG | [facility] | | | Oral Tablet | [facility] | + + + + | (no date) | ASPIRIN | [facility] | | | | [facility] | + + + + | (no date) | aspirin 81 MG Delayed | [facility] | | | Release Oral Tablet | [facility] | + + + + | 2025-10-09 00:00 | IBUPROFEN | [facility] | [facility] | + + + + | 2025-10-09 00:00 | ibuprofen 200 MG Oral | [facility] | | | Tablet | [facility] | + + + + | (no date) | ATORVASTATIN | [facility] | | | | [facility] | + + + + | (no date) | atorvastatin 10 MG Oral | [facility] | | | Tablet [Lipitor] | [facility] | + + + + | (no date) | 24 HR oxybutynin chloride | [facility] | | | 10 MG Extended Release Oral | [facility] | | | Tablet | | + + + + | (no date) | OXYBUTYNIN CHLORIDE | [facility] | | | | [facility] | + + + + | (no date) | OXYBUTYNIN CHLORIDE | [facility] | | | | [facility] | + + + + | (no date) | oxybutynin chloride 5 MG | [facility] | | | Oral Tablet | [facility] | + + + + | (no date) | LEVOTHYROXINE SODIUM | [facility] | | | | [facility] | + + + + | (no date) | levothyroxine sodium 0.125 | [facility] | | | MG Oral Tablet | [facility] | + + + + Problems No information. Procedures + + + + | date | description | facility | + + + + | 2025-10-09 00:00 | DRAINAGE OF RIGHT BREAST, | [facility] | | | OPEN APPROACH, DIAGNOSTIC | [facility] | + + + + | 2025-10-09 00:00 | EXCISION OF RIGHT BREAST, | [facility] | | | OPEN APPROACH | [facility] | + + + + | 2025-10-09 00:00 | Bi[facility] of right breast | [facility] | | | | [facility] | + + + + | 2025-10-09 00:00 | [facility] of both breasts | [facility] | | | | [facility] | + + + + | 2025-10-09 00:00 | PARTIAL MASTECTOMY | [facility] | | | | [facility] | + + + + | 2025-11-04 00:00 | Mastectomy of right breast | [facility] | | | | [facility] | + + + + | 2025-10-09 00:00 | Dissection of lymph node | [facility] | | | of right axilla | [facility] | + + + + | 2025-11-04 00:00 | Dissection of lymph node | [facility] | | | of right axilla | [facility] | + + + + | 2025-10-09 00:00 | BIOPSY/REMOVAL LYMPH NODES | [facility] | | | | [facility] | + + + + | 2025-10-09 00:00 | Bilateral axillary lymph | [facility] | | | node dissection | [facility] | + + + + | 2025-10-09 00:00 | Dissection of lymph node | [facility] | | | of right axilla | [facility] | + + + + | 2025-11-04 00:00 | Dissection of lymph node | [facility] | | | of right axilla | [facility] | + + + + | 2025-10-09 00:00 | IO MAP OF SENT LYMPH NODE | [facility] | | | | [facility] | + + + + | 2025-10-09 00:00 | Lumpectomy of both breasts | [facility] | | | | [facility] | + + + + | 2025-11-04 00:00 | Mastectomy of right breast | [facility] | | | | [facility] | + + + + | 2025-10-09 00:00 | Bilateral axillary lymph | [facility] | | | node dissection | [facility] | + + + + | 2025-10-09 00:00 | Biopsy of right breast | [facility] | | | | [facility] | + + + + Results/Labs +--------+--------+ +---------+--------+---------+ | test | date | facility | value | unit | notes | +--------+--------+ +---------+--------+---------+ + + | Result panel 1 | + + + + + +--------+ + + | Automated | 2025-10-06 | | 43.0 | (missing) | (missing) | | blood | 13:30 | [facility] | | | | | hematocrit [facility] | | | | + + + +--------+ + + + + | Result panel 2 | + + + + + +--------+ + + | Automated | 2025-10-06 | | 95.3 | (missing) | (missing) | | erythrocyte | 13:30 | [facility] | | | | | mean | [facility] | corpuscular | [facility] | | | volume | | [facility] | | | | + + + +--------+ + + + + | Result panel 3 | + + + + + +--------+ + + | Automated | 2025-10-06 | | 30.6 | (missing) | (missing) | | erythrocyte | 13:30 | [facility] | | | | | mean | [facility] | | | | | corpuscular | | [facility] | | | | hemoglobin | | [facility] | | | | | (mass per | | | | | | | erythrocyte) | | | | | | | | | | | | | + + + +--------+ + + + + | Result panel 4 | + + + + + +--------+ + + | Automated | 2025-10-06 | | 32.1 | (missing) | (missing) | | erythrocyte | 13:30 | [facility] | | | | | mean | [facility] | | | | | corpuscular | | [facility] | | | | | hemoglobin | | Hospital | | | | | concentratio | | | | | | | n | | | | | | | measurement | | | | | | | (mass/volume | | | | | | | ) | | | | | | + + + +--------+ + + + + | Result panel 5 | + + + + + +-------+ + + | Automated | 2025-10-06 | | 255 | (missing) | (missing) | | blood | 13:30 | [facility] | | | | | platelet | [facility] count | | [facility] | | | | (count/volum | | Hospital | | | | | e) | | | | | | + + + +-------+ + + + + | Result panel 6 | + + + + + +--------+ + + | Automated | 2025-10-06 | | 64.1 | (missing) | (missing) | | blood | 13:30 | [facility] | | | | | neutrophil | [facility] | count as | | [facility] | | | | percentage | | Hospital | | | | | of total | | | | | | | leukocytes | | | | | | + + + +--------+ + + + + | Result panel 7 | + + + + + +--------+ + + | Automated | 2025-10-06 | | 24.1 | (missing) | (missing) | | blood | 13:30 | [facility] | | | | | lymphocyte | [facility] | count as | | [facility] | | | | | percentage | | Hospital | | | | | ot total | | | | | | | leukocytes | | | | | | + + + +--------+ + + + + | Result panel 8 | + + + + + +-------+ + + | Automated | 2025-10-06 | | 9.8 | (missing) | (missing) | | blood | 13:30 | [facility] | | | | | monocyte | [facility] count as | | [facility] | | | | percentage | | [facility] | | | | | of total | | | | | | | leukocytes | | | | | | + + + +-------+ + + + + | Result panel 9 | + + + + + +-------+ + + | Automated | 2025-10-06 | | 1.1 | (missing) | (missing) | | blood | 13:30 | [facility] | | | | | eosinophil | [facility] count as | | [facility] | | | | percentage | | Hospital | | | | | of total | | | | | | | leukocytes | | | | | | + + + +-------+ + + + + | Result panel 10 | + + + + + +-------+ + + | Automated | 2025-10-06 | | 0.5 | (missing) | (missing) | | blood | 13:30 | [facility] | | | | | basophil | [facility] count as | | [facility] | | | | percentage | | Hospital | | | | | of total | | | | | | | leukocytes | | | | | | + + + +-------+ + + + + | Result panel 11 | + + + + + +-------+ + + | Serum or | 2025-10-06 | | 106 | (missing) | (missing) | | plasma | 13:30 | [facility] | | | | | glucose | [facility] measurement | | [facility] | | | | (mass/volume | | Hospital | | | | | ) | | | | | | + + + +-------+ + + + + | Result panel 12 | + + + + + +------+ + + | Serum or | 2025-10-06 | | 17 | (missing) | (missing) | | plasma urea | 13:30 | [facility] | | | | | nitrogen | [facility] | measurement | | [facility] | | | | (mass/volume | | Hospital | | | | | ) | | | | | | + + + +------+ + + + + | Result panel 13 | + + + + + +--------+ + + | Serum or | 2025-10-06 | | 0.91 | (missing) | (missing) | | plasma | 13:30 | [facility] | | | | | creatinine | [facility] measurement | | [facility] | | | | (mass/volume | | Hospital | | | | | ) | | | | | | + + + +--------+ + + + + | Result panel 14 | + + + + + +------+ + + | Glomerular | 2025-10-06 | | 62 | (missing) | (missing) | | filtration | 13:30 | [facility] | | | | | rate/1.73 sq | [facility] | | | | M.predicted | | [facility] | | | | | [Volume | | Hospital | | | | | Rate/Area] | | | | | | | inSerum, | | | | | | | Plasma or | | | | | | | Blood by | | | | | | | Creatinine-b | | | | | | | ased formula | | | | | | | (CKD-EPI | | | | | | | 2020) | | | | | | + + + +------+ + + + + | Result panel 15 | + + + + + +---------+ + + | Serum or | 2025-10-06 | | 18.68 | (missing) | (missing) | | plasma urea | 13:30 | [facility] | | | | | nitrogen/cre | [facility] | atinine mass | | [facility] | | | | ratio | | Hospital | | | | + + + +---------+ + + + + | Result panel 16 | + + + + + +-------+ + + | Serum or | 2025-10-06 | | 140 | (missing) | (missing) | | plasma | 13:30 | [facility] | | | | | sodium | [facility] | measurement | | [facility] | | | | | (moles/volum | | Hospital | | | | | e) | | | | | | + + + +-------+ + + + + | Result panel 17 | + + + + + +-------+ + + | Serum or | 2025-10-06 | | 4.3 | (missing) | (missing) | | plasma | 13:30 | [facility] | | | | | potassium | [facility] | measurement | | [facility] | | | | | (moles/volum | | Hospital | | | | | e) | | | | | | + + + +-------+ + + + + | Result panel 18 | + + + + + +-------+ + + | Serum or | 2025-10-06 | | 106 | (missing) | (missing) | | plasma | 13:30 | [facility] | | | | | chloride | | [facility] | measurement | | [facility] | | | | | (moles/volum | | Hospital | | | | | e) | | | | | | + + + +-------+ + + + + | Result panel 19 | + + + + + +------+ + + | Serum or | 2025-10-06 | | 26 | (missing) | (missing) | | plasma | 13:30 | [facility] | | | | | carbon | | - [facility] | | | | | dioxide, | | [facility] | | | | | total | | [facility]ose | | | | | measurement | | | | | | | (moles/volum | | | | | | | e) | | | | | | + + + +------+ + + + + | Result panel 20 | + + + + + +--------+ + + | Serum or | 2025-10-06 | | 12.3 | (missing) | (missing) | | plasma anion | 13:30 | [facility] | | | | | gap 4 | [facility] | | | | + + + +--------+ + + + + | Result panel 21 | + + + + + +-------+ + + | Serum or | 2025-10-06 | | 9.1 | (missing) | (missing) | | plasma | 13:30 | [facility] | | | | | calcium | [facility] | measurement | | [facility] | | | | | (mass/volume | | Hospital | | | | | ) | | | | | | + + + +-------+ + + + + | Result panel 22 | + + + + + +-------+ + + | Serum or | 2025-10-06 | | 7.6 | (missing) | (missing) | | plasma | 13:30 | [facility] | | | | | protein | [facility] | measurement | | [facility] | | | | (mass/volume | | Hospital | | | | | ) | | | | | | + + + +-------+ + + + + | Result panel 23 | + + + + + +-------+ + + | Serum or | 2025-10-06 | | 4.1 | (missing) | (missing) | | plasma | 13:30 | [facility] | | | | | albumin | [facility] | measurement | | [facility] | | | | (mass/volume | | Hospital | | | | | ) | | | | | | + + + +-------+ + + + + | Result panel 24 | + + + + + +-------+ + + | Serum | 2025-10-06 | | 3.5 | (missing) | (missing) | | globulin | 13:30 | [facility] | | | | | measurement | | - [facility] | | | | (mass/volume | | [facility] | | | | ) | | [facility] | | | | + + + +-------+ + + + + | Result panel 25 | + + + + + +--------+ + + | Serum or | 2025-10-06 | | 1.17 | (missing) | (missing) | | plasma | 13:30 | [facility] | | | | | albumin/glob | [facility] | ulin mass | | [facility] | | | | ratio | | [facility] | | | | + + + +--------+ + + + + | Result panel 26 | + + + + + +-------+ + + | Serum or | 2025-10-06 | | 0.5 | (missing) | (missing) | | plasma total | 13:30 | [facility] | | | | | bilirubin | | - [facility] | [facility] | measurement | | [facility] | | | | | (mass/volume | | Hospital | | | | | ) | | | | | | + + + +-------+ + + + + | Result panel 27 | + + + + + +------+ + + | Serum or | 2025-10-06 | | 20 | (missing) | (missing) | | plasma | 13:30 | [facility] | | | | | aspartate | [facility] | | | | | aminotransfe | | [facility] | | | | | rase | | Hospital | | | | | measurement | | | | | | | (enzymatic | | | | | | | activity/vol | | | | | | | ume) | | | | | | + + + +------+ + + + + | Result panel 28 | + + + + + +------+ + + | Serum or | 2025-10-06 | | 19 | (missing) | (missing) | | plasma | 13:30 | [facility] | | | | | alanine | | [facility] | | | | | aminotransfe | | [facility] | | | | | rase | | Hospital | | | | | measurement | | | | | | | (enzymatic | | | | | | | activity/vol | | | | | | | ume) | | | | | | + + + +------+ + + + + | Result panel 29 | + + + + + +------+ + + | Serum or | 2025-10-06 | | 70 | (missing) | (missing) | | plasma | 13:30 | [facility] | | | | | alkaline | [facility] | | | | | phosphatase | | [facility] | | | | | measurement | | Hospital | | | | | (enzymatic | | | | | | | activity/vol | | | | | | | ume) | | | | | | + + + +------+ + + + + | Result panel 30 | + + + + + +-------+ + + | Serum or | 2025-10-06 | | 106 | (missing) | (missing) | | plasma | 13:30 | [facility] | | | | | glucose | [facility] | measurement | | [facility] | | | | | (mass/volume | | Hospital | | | | | ) | | | | | | + + + +-------+ + + + + | Result panel 31 | + + + + + +------+ + + | Serum or | 2025-10-06 | | 17 | (missing) | (missing) | | plasma urea | 13:30 | [facility] | | | | | nitrogen | | - [facility] | | [facility] | measurement | | [facility] | | | | | (mass/volume | | Hospital | | | | | ) | | | | | | + + + +------+ + + + + | Result panel 32 | + + + + + +--------+ + + | Serum or | 2025-10-06 | | 0.91 | (missing) | (missing) | | plasma | 13:30 | [facility] | | | | | creatinine | [facility] | [facility] | measurement | | [facility] | | | | | (mass/volume | | Hospital | | | | | ) | | | | | | + + + +--------+ + + + + | Result panel 33 | + + + + + +------+ + + | Glomerular | 2025-10-06 | | 62 | (missing) | (missing) | | filtration | 13:30 | [facility] | | | | | rate/1.73 sq | [facility] - [facility] | | | | | M.predicted | | [facility] | | | | | [Volume | | Hospital | | | | | Rate/Area] | | | | | | | inSerum, | | | | | | | Plasma or | | | | | | | Blood by | | | | | | | Creatinine-b | | | | | | | ased formula | | | | | | | (CKD-EPI | | | | | | | 2020) | | | | | | + + + +------+ + + + + | Result panel 34 | + + + + + +---------+ + + | Serum or | 2025-10-06 | | 18.68 | (missing) | (missing) | | plasma urea | 13:30 | [facility] | | | | | nitrogen/cre | | - [facility] | | | | | atinine mass | | [facility] | | | | | ratio | | Hospital | | | | + + + +---------+ + + + + | Result panel 35 | + + + + + +-------+ + + | Serum or | 2025-10-06 | | 140 | (missing) | (missing) | | plasma | 13:30 | [facility] | | | | | sodium | | - [facility] | | [facility] | measurement | | [facility] | | | | | (moles/volum | | Hospital | | | | | e) | | | | | | + + + +-------+ + + + + | Result panel 36 | + + + + + +-------+ + + | Serum or | 2025-10-06 | | 4.3 | (missing) | (missing) | | plasma | 13:30 | [facility] | | | | | potassium | | - [facility] | | [facility] | | measurement | | [facility] | | | | | (moles/volum | | Hospital | | | | | e) | | | | | | + + + +-------+ + + + + | Result panel 37 | + + + + + +-------+ + + | Serum or | 2025-10-06 | | 106 | (missing) | (missing) | | plasma | 13:30 | [facility] | | | | | chloride | | - [facility] | | | | | measurement | | [facility] | | | | | (moles/volum | | Hospital | | | | | e) | | | | | | + + + +-------+ + + + + | Result panel 38 | + + + + + +------+ + + | Serum or | 2025-10-06 | | 26 | (missing) | (missing) | | plasma | 13:30 | [facility] | | | | | carbon | | [facility] | | | | | dioxide, | | [facility] | | | | | total | | Hospital | | | | | measurement | | | | | | | (moles/volum | | | | | | | e) | | | | | | + + + +------+ + + + + | Result panel 39 | + + + + + +--------+ + + | Serum or | 2025-10-06 | | 12.3 | (missing) | (missing) | | plasma anion | 13:30 | [facility] | | | | | gap 4 | [facility] | [facility] | | [facility] | | | | + + + +--------+ + + + + | Result panel 40 | + + + + + +-------+ + + | Serum or | 2025-10-06 | | 9.1 | (missing) | (missing) | | plasma | 13:30 | [facility] | | | | | calcium | | - [facility] | | | | | measurement | | [facility] | | | | | (mass/volume | | Hospital | | | | | ) | | | | | | + + + +-------+ + + + + | Result panel 41 | + + + + + +-------+ + + | Serum or | 2025-10-06 | | 7.6 | (missing) | (missing) | | plasma | 13:30 | [facility] | | | | | protein | | - [facility] | | | | | measurement | | [facility] | | | | | (mass/volume | | Hospital | | | | | ) | | | | | | + + + +-------+ + + + + | Result panel 42 | + + + + + +-------+ + + | Serum or | 2025-10-06 | | 4.1 | (missing) | (missing) | | plasma | 13:30 | [facility] | | | | | albumin | | - [facility] | | | | | measurement | | [facility] | | | | | (mass/volume | | Hospital | | | | | ) | | | | | | + + + +-------+ + + + + | Result panel 43 | + + + + + +-------+ + + | Serum | 2025-10-06 | | 3.5 | (missing) | (missing) | | globulin | 13:30 | [facility] | | | | | measurement | | - [facility] | | | | | (mass/volume | | [facility] | | | | ) | | [facility] | | | | + + + +-------+ + + + + | Result panel 44 | + + + + + +--------+ + + | Serum or | 2025-10-06 | | 1.17 | (missing) | (missing) | | plasma | 13:30 | [facility] | | | | | albumin/glob | | - [facility] | | | | | ulin mass | | [facility] | | | | | ratio | | Hospital | | | | + + + +--------+ + + + + | Result panel 45 | + + + + + +-------+ + + | Serum or | 2025-10-06 | | 0.5 | (missing) | (missing) | | plasma total | 13:30 | [facility] | | | | | bilirubin | | - [facility] | | | | | measurement | | [facility] | | | | | (mass/volume | | Hospital | | | | | ) | | | | | | + + + +-------+ + + + + | Result panel 46 | + + + + + +------+ + + | Serum or | 2025-10-06 | | 20 | (missing) | (missing) | | plasma | 13:30 | [facility] | | | | | aspartate | | - [facility] | | | | | aminotransfe | | [facility] | | | | | rase | | Hospital | | | | | measurement | | | | | | | (enzymatic | | | | | | | activity/vol | | | | | | | ume) | | | | | | + + + +------+ + + + + | Result panel 47 | + + + + + +------+ + + | Serum or | 2025-10-06 | | 19 | (missing) | (missing) | | plasma | 13:30 | [facility] | | | | | alanine | | - [facility] | | | | | aminotransfe | | [facility] | | | | | rase | | Hospital | | | | | measurement | | | | | | | (enzymatic | | | | | | | activity/vol | | | | | | | ume) | | | | | | + + + +------+ + + + + | Result panel 48 | + + + + + +------+ + + | Serum or | 2025-10-06 | | 70 | (missing) | (missing) | | plasma | 13:30 | [facility] | | | | | alkaline | | - [facility] | | | | | phosphatase | | [facility] | | | | | measurement | | Hospital | | | | | (enzymatic | | | | | | | activity/vol | | | | | | | ume) | | | | | | + + + +------+ + + + + | Result panel 49 | + + + + + +---------+ + + | Blood | 2025-10-06 | | 11.98 | (missing) | (missing) | | leukocytes | 13:30 | [facility] | | | | | automated | | [facility] | | | | | count | | [facility] | | | | | (number/volu | | Hospital | | | | | me) | | | | | | + + + +---------+ + + + + | Result panel 50 | + + + + + +--------+ + + | Blood | 2025-10-06 | | 4.51 | (missing) | (missing) | | erythrocytes | 13:30 | [facility] | | | | | automated | | - [facility] | | | | | count | | [facility] | | | | | (number/volu | | Hospital | | | | | me) | | | | | | + + + +--------+ + + + + | Result panel 51 | + + + + + +--------+ + + | Blood | 2025-10-06 | | 13.8 | (missing) | (missing) | | hemoglobin | 13:30 | [facility] | | | | | measurement | | - [facility] | | | | | (mass/volume | | [facility] | | | | ) | | [facility] | | | | + + + +--------+ + + + + | Result panel 52 | + + + + + +-------+---------+ + | Glucose | 2025-10-06 | | 106 | mg/dL | (missing) | | Geo | 13:30:08 | [facility] | [facility] | [facility] | | | | + + + +-------+---------+ + + + | Result panel 53 | + + + + + +------+---------+ + | BUN | 2025-10-06 | | 17 | mg/dL | (missing) | | [facility] | 13:30:08 | [facility] | [facility] | | | | | [facility] | | | | + + + +------+---------+ + + + | Result panel 54 | + + + + + +--------+---------+ + | Creat | 2025-10-06 | | 0.91 | mg/dL | (missing) | | [facility] | 13:30:08 | [facility] | | [facility] | | | | + + + +--------+---------+ + + + | Result panel 55 | + + + + + +------+ + + | eGFRcr | 2025-10-06 | | 62 | (missing) | (missing) | | SerPlBld | 13:30:08 | [facility] | | | | | CKD-EPI 2020 | [facility] | | | | + + + +------+ + + + + | Result panel 56 | + + + + + +---------+ + + | BUN/Creat | 2025-10-06 | | 18.68 | (missing) | (missing) | | SerPl | 13:30:08 | [facility] | | | | + + + +---------+ + + + + | Result panel 57 | + + + + + +-------+ + + | Sodium | 2025-10-06 | | 140 | (missing) | (missing) | | SerPl-sCnc | 13:30:08 | [facility] | | | | + + + +-------+ + + + + | Result panel 58 | + + + + + +-------+ + + | Potassium | 2025-10-06 | | 4.3 | (missing) | (missing) | | SerPl-sCnc | 13:30:08 | [facility] | | | | + + + +-------+ + + + + | Result panel 59 | + + + + + +-------+ + + | Chloride | 2025-10-06 | | 106 | (missing) | (missing) | | SerPl-sCnc | 13:30:08 | [facility] | | | | + + + +-------+ + + + + | Result panel 60 | + + + + + +------+ + + | CO2 | 2025-10-06 | | 26 | (missing) | (missing) | | SerPl-sCnc | 13:30:08 | [facility] | | | | + + + +------+ + + + + | Result panel 61 | + + + + + +--------+ + + | Anion Gap | 2025-10-06 | | 12.3 | (missing) | (missing) | | SerPl | 13:30:08 | [facility] | | | | | Calculated.4 | [facility] | | | | + + + +--------+ + + + + | Result panel 62 | + + + + + +-------+---------+ + | Calcium | 2025-10-06 | | 9.1 | mg/dL | (missing) | | SerPl-mCnc | 13:30:08 | [facility] | | | | + + + +-------+---------+ + + + | Result panel 63 | + + + + + +-------+ + + | Prot | 2025-10-06 | | 7.6 | (missing) | (missing) | | [facility] | 13:30:08 | [facility] | | [facility] | | | | + + + +-------+ + + + + | Result panel 64 | + + + + + +-------+ + + | Albumin | 2025-10-06 | | 4.1 | (missing) | (missing) | | SerPl-mCnc | 13:30:08 | [facility] | | | | + + + +-------+ + + + + | Result panel 65 | + + + + + +-------+ + + | Globulin | 2025-10-06 | | 3.5 | (missing) | (missing) | | Ser-mCnc | 13:30:08 | [facility] | | | | + + + +-------+ + + + + | Result panel 66 | + + + + + +--------+ + + | | 2025-10-06 | | 1.17 | (missing) | (missing) | | Albumin/Glob | 13:30:08 | [facility] | | | | | SerPl | [facility] | | | | + + + +--------+ + + + + | Result panel 67 | + + + + + +-------+---------+ + | Bilirub | 2025-10-06 | | 0.5 | mg/dL | (missing) | | SerPl-mCnc | 13:30:08 | [facility] | | | | + + + +-------+---------+ + + + | Result panel 68 | + + + + + +------+ + + | AST | 2025-10-06 | | 20 | (missing) | (missing) | | SerPl-cCnc | 13:30:08 | [facility] | | | | + + + +------+ + + + + | Result panel 69 | + + + + + +------+ + + | ALT | 2025-10-06 | | 19 | (missing) | (missing) | | SerPl-cCnc | 13:30:08 | [facility] | | | | + + + +------+ + + + + | Result panel 70 | + + + + + +------+ + + | ALP | 2025-10-06 | | 70 | (missing) | (missing) | | SerPl-cCnc | 13:30:08 | [facility] | | | | + + + +------+ + + + + | Result panel 71 | + + + + + +---------+ + + | WBC # Bld | 2025-10-06 | | 11.98 | (missing) | (missing) | | Auto | 13:30:08 | [facility] | | | | + + + +---------+ + + + + | Result panel 72 | + + + + + +--------+ + + | RBC # Bld | 2025-10-06 | | 4.51 | (missing) | (missing) | | Auto | 13:30:08 | [facility] | | | | + + + +--------+ + + + + | Result panel 73 | + + + + + +--------+ + + | Hgb | 2025-10-06 | | 13.8 | (missing) | (missing) | | Bld-mCnc | 13:30:08 | [facility] | | | | + + + +--------+ + + + + | Result panel 74 | + + + + + +--------+ + + | Hct VFr.DF | 2025-10-06 | | 43.0 | (missing) | (missing) | | Bld Auto | 13:30:08 | [facility] | | | | + + + +--------+ + + + + | Result panel 75 | + + + + + +--------+ + + | RBC Auto | 2025-10-06 | | 95.3 | (missing) | (missing) | | | 13:30:08 | [facility] | | | | + + + +--------+ + + + + | Result panel 76 | + + + + + +--------+ + + | MCH RBC Qn | 2025-10-06 | | 30.6 | (missing) | (missing) | | Auto | 13:30:08 | [facility] | | | | + + + +--------+ + + + + | Result panel 77 | + + + + + +--------+ + + | MCHC RBC | 2025-10-06 | | 32.1 | (missing) | (missing) | | Auto-EntMCnc | 13:30:08 | [facility] | | | | + + + +--------+ + + + + | Result panel 78 | + + + + + +-------+ + + | Platelet # | 2025-10-06 | | 255 | (missing) | (missing) | | Bld Auto | 13:30:08 | [facility] | | | | + + + +-------+ + + + + | Result panel 79 | + + + + + +--------+ + + | Neutrophils | 2025-10-06 | | 64.1 | (missing) | (missing) | | NFr Bld | 13:30:08 | [facility] | | | | Auto [facility] | | | | + + + +--------+ + + + + | Result panel 80 | + + + + + +--------+ + + | Lymphocytes | 2025-10-06 | | 24.1 | (missing) | (missing) | | NFr Bld | 13:30:08 | [facility] | | | | | Auto | [facility] | | | | + + + +--------+ + + + + | Result panel 81 | + + + + + +-------+ + + | Monocytes | 2025-10-06 | | 9.8 | (missing) | (missing) | | NFr Bld Auto | 13:30:08 | [facility] | | | | + + + +-------+ + + + + | Result panel 82 | + + + + + +-------+ + + | Eosinophil | 2025-10-06 | | 1.1 | (missing) | (missing) | | NFr Bld Auto | 13:30:08 | [facility] | | | | + + + +-------+ + + + + | Result panel 83 | + + + + + +-------+ + + | Basophils | 2025-10-06 | | 0.5 | (missing) | (missing) | | NFr Bld Auto | 13:30:08 | [facility] | | | | + + + +-------+ + + + + | Result panel 84 | + + + + + +-------+---------+ + | Glucose | 2025-10-06 | | 106 | mg/dL | (missing) | | SerPl-mCnc | 13:30:08 | [facility] | | | | + + + +-------+---------+ + + + | Result panel 85 | + + + + + +------+---------+ + | BUN | 2025-10-06 | | 17 | mg/dL | (missing) | | SerPl-mCnc | 13:30:08 | [facility] | | | | + + + +------+---------+ + + + | Result panel 86 | + + + + + +--------+---------+ + | Creat | 2025-10-06 | | 0.91 | mg/dL | (missing) | | SerPl-mCnc | 13:30:08 | [facility] | | | | + + + +--------+---------+ + + + | Result panel 87 | + + + + + +------+ + + | eGFRcr | 2025-10-06 | | 62 | (missing) | (missing) | | SerPlBld | 13:30:08 | [facility] | | | | | CKD-EPI 2020 | [facility] | | | | + + + +------+ + + + + | Result panel 88 | + + + + + +---------+ + + | BUN/Creat | 2025-10-06 | | 18.68 | (missing) | (missing) | | SerPl | 13:30:08 | [facility] | | | | + + + +---------+ + + + + | Result panel 89 | + + + + + +-------+ + + | Sodium | 2025-10-06 | | 140 | (missing) | (missing) | | SerPl-sCnc | 13:30:08 | [facility] | | | | + + + +-------+ + + + + | Result panel 90 | + + + + + +-------+ + + | Potassium | 2025-10-06 | | 4.3 | (missing) | (missing) | | Ser[facility] | 13:30:08 | [facility] | | | | + + + +-------+ + + + + | Result panel 91 | + + + + + +-------+ + + | Chloride | 2025-10-06 | | 106 | (missing) | (missing) | | SerPl-sCnc | 13:30:08 | [facility] | | | | + + + +-------+ + + + + | Result panel 92 | + + + + + +------+ + + | CO2 | 2025-10-06 | | 26 | (missing) | (missing) | | SerPl-sCnc | 13:30:08 | [facility] | | | | + + + +------+ + + + + | Result panel 93 | + + + + + +--------+ + + | Anion Gap | 2025-10-06 | | 12.3 | (missing) | (missing) | | SerPl | 13:30:08 | [facility] | | | | | Calculated.4 | [facility] | | | | + + + +--------+ + + + + | Result panel 94 | + + + + + +-------+---------+ + | Calcium | 2025-10-06 | | 9.1 | mg/dL | (missing) | | SerPl-mCnc | 13:30:08 | [facility] | | | | + + + +-------+---------+ + + + | Result panel 95 | + + + + + +-------+ + + | Prot | 2025-10-06 | | 7.6 | (missing) | (missing) | | Geo | 13:30:08 | [facility] | | | | + + + +-------+ + + + + | Result panel 96 | + + + + + +-------+ + + | Albumin | 2025-10-06 | | 4.1 | (missing) | (missing) | | [facility] | 13:30:08 | [facility] | | | | + + + +-------+ + + + + | Result panel 97 | + + + + + +-------+ + + | Globulin | 2025-10-06 | | 3.5 | (missing) | (missing) | | Ser-Crystal | 13:30:08 | [facility] | | | | + + + +-------+ + + + + | Result panel 98 | + + + + + +--------+ + + | | 2025-10-06 | | 1.17 | (missing) | (missing) | | Albumin/Glob | 13:30:08 | [facility] | | | | | SerPl | [facility] | | | | + + + +--------+ + + + + | Result panel 99 | + + + + + +-------+---------+ + | Bilirub | 2025-10-06 | | 0.5 | mg/dL | (missing) | | SerPl-[facility] | 13:30:08 | [facility] | | | | + + + +-------+---------+ + + + | Result panel 100 | + + + + + +------+ + + | AST | 2025-10-06 | | 20 | (missing) | (missing) | | SerPl-cCnc | 13:30:08 | [facility] | | | | + + + +------+ + + + + | Result panel 101 | + + + + + +------+ + + | ALT | 2025-10-06 | | 19 | (missing) | (missing) | | SerPl-cCnc | 13:30:08 | [facility] | [facility] | | | | + + + +------+ + + + + | Result panel 102 | + + + + + +------+ + + | ALP | 2025-10-06 | | 70 | (missing) | (missing) | | SerPl-cCnc | 13:30:08 | [facility] | [facility] | | [facility] | | | | + + + +------+ + + + + | Result panel 103 | + + + + + +---------+ + + | Blood | 2025-11-05 | | 11.33 | (missing) | (missing) | | leukocytes | 05:20 | [facility] | | | | | automated | [facility] count | [facility] | | | | (number/volu | | [facility] | | | | | me) | | | | | | + + + +---------+ + + + + | Result panel 104 | + + + + + +-------+ + + | Automated | 2025-11-05 | | 8.4 | (missing) | (missing) | | blood | 05:20 | [facility] | | | | | lymphocyte | [facility] - [facility] count as | [facility] | | | | | percentage | | Hospital | | | | | ot total | | | | | | | leukocytes | | | | | | + + + +-------+ + + + + | Result panel 105 | + + + + + +-------+ + + | Automated | 2025-11-05 | | 8.5 | (missing) | (missing) | | blood | 05:20 | [facility] | | | | | monocyte | | - [facility] | count as | [facility] | | | | percentage | | Hospital | | | | | of total | | | | | | | leukocytes | | | | | | + + + +-------+ + + + + | Result panel 106 | + + + + + +-----+ + + | Automated | 2025-11-05 | | 0 | (missing) | (missing) | | blood | 05:20 | [facility] | | | | | eosinophil | | - [facility] count as | [facility] | | | | | percentage | | Hospital | | | | | of total | | | | | | | leukocytes | | | | | | + + + +-----+ + + + + | Result panel 107 | + + + + + +-------+ + + | Automated | 2025-11-05 | | 0.1 | (missing) | (missing) | | blood | 05:20 | [facility] | | | | | basophil | | - [facility] | count as | [facility] | | | | percentage | | Hospital | | | | | of total | | | | | | | leukocytes | | | | | | + + + +-------+ + + + + | Result panel 108 | + + + + + +--------+ + + | Blood | 2025-11-05 | | 3.25 | (missing) | (missing) | | erythrocytes | 05:20 | [facility] | | | | | automated | [facility] count | [facility] | | | | (number/volu | | Hospital | | | | | me) | | | | | | + + + +--------+ + + + + | Result panel 109 | + + + + + +-------+ + + | Blood | 2025-11-05 | | 9.9 | (missing) | (missing) | | hemoglobin | 05:20 | [facility] | | | | | measurement | [facility] | (mass/volume | [facility] | | | ) | | [facility] | | | | + + + +-------+ + + + + | Result panel 110 | + + + + + +--------+ + + | Automated | 2025-11-05 | | 30.6 | (missing) | (missing) | | blood | 05:20 | [facility] | | | | | hematocrit | [facility] | | | | + + + +--------+ + + + + | Result panel 111 | + + + + + +--------+ + + | Automated | 2025-11-05 | | 94.2 | (missing) | (missing) | | erythrocyte | 05:20 | [facility] | | | | | mean | | - [facility] | [facility] | | corpuscular | [facility] | | | | volume | | [facility] | | | | + + + +--------+ + + + + | Result panel 112 | + + + + + +--------+ + + | Automated | 2025-11-05 | | 30.5 | (missing) | (missing) | | erythrocyte | 05:20 | [facility] | | | | | mean | | - [facility] | | | | | corpuscular | [facility] | | | | hemoglobin | | [facility] | | | | | (mass per | | | | | | | erythrocyte) | | | | | | | | | | | | | + + + +--------+ + + + + | Result panel 113 | + + + + + +--------+ + + | Automated | 2025-11-05 | | 32.4 | (missing) | (missing) | | erythrocyte | 05:20 | [facility] | | | | | mean | | - [facility] | | | | | corpuscular | [facility] | | | | | hemoglobin | | Hospital | | | | | concentratio | | | | | | | n | | | | | | | measurement | | | | | | | (mass/volume | | | | | | | ) | | | | | | + + + +--------+ + + + + | Result panel 114 | + + + + + +-------+ + + | Automated | 2025-11-05 | | 207 | (missing) | (missing) | | blood | 05:20 | [facility] | | | | | platelet | [facility] count | [facility] | | | | (count/volum | | Hospital | | | | | e) | | | | | | + + + +-------+ + + + + | Result panel 115 | + + + + + +--------+ + + | Automated | 2025-11-05 | | 82.6 | (missing) | (missing) | | blood | 05:20 | [facility] | | | | | neutrophil | [facility] - [facility] | count as | [facility] | | | | percentage | | Hospital | | | | | of total | | | | | | | leukocytes | | | | | | + + + +--------+ + + + + | Result panel 116 | + + + + + +---------+ + + | WBC # Bld | 2025-11-05 | | 11.33 | (missing) | (missing) | | Auto | 05:20:08 | [facility] | | | | + + + +---------+ + + + + | Result panel 117 | + + + + + +--------+ + + | RBC # Bld | 2025-11-05 | | 3.25 | (missing) | (missing) | | Auto | 05:20:08 | [facility] | [facility] | | [facility] | | | | + + + +--------+ + + + + | Result panel 118 | + + + + + +-------+ + + | Hgb | 2025-11-05 | | 9.9 | (missing) | (missing) | | Bld-mCnc | 05:20:08 | [facility] | | | | | | [facility] | | | | + + + +-------+ + + + + | Result panel 119 | + + + + + +--------+ + + | Hct VFr.DF | 2025-11-05 | | 30.6 | (missing) | (missing) | | Bld Auto | 05:20:08 | [facility] | | | | | | | - | | | | | | [facility] | | | | + + + +--------+ + + + + | Result panel 120 | + + + + + +--------+ + + | RBC Auto | 2025-11-05 | | 94.2 | (missing) | (missing) | | | 05:20:08 | [facility] | | | | + + + +--------+ + + + + | Result panel 121 | + + + + + +--------+ + + | MCH RBC Qn | 2025-11-05 | | 30.5 | (missing) | (missing) | | Auto | 05:20:08 | [facility] | | | | + + + +--------+ + + + + | Result panel 122 | + + + + + +--------+ + + | MCHC RBC | 2025-11-05 | | 32.4 | (missing) | (missing) | | Auto-EntMCnc | 05:20:08 | [facility] | | | | + + + +--------+ + + + + | Result panel 123 | + + + + + +-------+ + + | Platelet # | 2025-11-05 | | 207 | (missing) | (missing) | | Bld Auto | 05:20:08 | [facility] | | | | + + + +-------+ + + + + | Result panel 124 | + + + + + +--------+ + + | Neutrophils | 2025-11-05 | | 82.6 | (missing) | (missing) | | NFr Bld | 05:20:08 | [facility] | | | | | Auto | [facility] | | | | + + + +--------+ + + + + | Result panel 125 | + + + + + +-------+ + + | Lymphocytes | 2025-11-05 | | 8.4 | (missing) | (missing) | | NFr Bld | 05:20:08 | [facility] | | | | | Auto | [facility] | | | | + + + +-------+ + + + + | Result panel 126 | + + + + + +-------+ + + | Monocytes | 2025-11-05 | | 8.5 | (missing) | (missing) | | NFr Bld Auto | 05:20:08 | [facility] | | | | + + + +-------+ + + + + | Result panel 127 | + + + + + +-----+ + + | Eosinophil | 2025-11-05 | | 0 | (missing) | (missing) | | NFr Bld Auto | 05:20:08 | [facility] | | | | + + + +-----+ + + + + | Result panel 128 | + + + + + +-------+ + + | Basophils | 2025-11-05 | | 0.1 | (missing) | (missing) | | NFr Bld Auto | 05:20:08 | [facility] | | | | + + + +-------+ + + Social History + + + + | date | description | facility | + + + + | (no date) | Never smoker | [facility] | + + + + Vital Signs + + + +---------+ | date | measurement | value | units | + + + +---------+ | 2025-10-06 00:00 | BMI | 26.6 | kg/m2 | + + + +---------+ | 2025-10-06 00:00 | height_metric | 157.48 | cm | + + + +---------+ | 2025-10-06 00:00 | height_standard | 62 | in | + + + +---------+ | 2025-10-06 00:00 | weight_metric | 66.001 | kg | + + + +---------+ | 2025-10-06 00:00 | weight_standard | 145.506 | lb | + + + +---------+ | 2025-10-09 00:00 | BP_diastolic | 65 | mmHg | + + + +---------+ | 2025-10-09 00:00 | BP_systolic | 131 | mmHg | + + + +---------+ | 2025-10-09 00:00 | heart_rate | 73 | /min | + + + +---------+ | 2025-10-09 00:00 | o2_saturation | 96 | % | + + + +---------+ | 2025-10-09 00:00 | respiration_rate | 16 | /min | + + + +---------+ | 2025-10-09 00:00 | | 98.7 | F | | | temperature_standar | | | | | d | | | + + + +---------+ | 2025-11-04 00:00 | BMI | 26.6 | kg/m2 | + + + +---------+ | 2025-11-04 00:00 | height_metric | 157.48 | cm | + + + +---------+ | 2025-11-04 00:00 | height_standard | 62 | in | + + + +---------+ | 2025-11-04 00:00 | weight_metric | 65.901 | kg | + + + +---------+ | 2025-11-04 00:00 | weight_standard | 145.287 | lb | + + + +---------+ | 2025-11-05 00:00 | BP_diastolic | 66 | mmHg | + + + +---------+ | 2025-11-05 00:00 | BP_systolic | 128 | mmHg | + + + +---------+ | 2025-11-05 00:00 | heart_rate | 99 | /min | + + + +---------+ | 2025-11-05 00:00 | o2_saturation | 96 | % | + + + +---------+ | 2025-11-05 00:00 | respiration_rate | 20 | /min | + + + +---------+ | 2025-11-05 00:00 | | 98.1 | F | | | temperature_standar | | | | | d | | | + + + +---------+"
[~2025-11-19 14:04] MED LIST changes: +ACETAMINOPHEN500 MG PO; -CEFAZOLIN SODIUM 2 GM in SODIUM CHLORIDE 0.9% 100 ML IV SCH; -HEParin SOD (PORCINE) 5,000 UNIT/ML SDV SUB-Q SCH; -IBLOOD GLUCOSE TEST STRIP 1 EA TEST VI PRN; -LACTATED RINGER'S 1,000 ML IV SCH; -LIDOCAINE HCL 1% 5 ML SDV INJ ONE; +OXYBUTYNIN CHLO10 MG PO
[2025-11-19 14:30] LABS: BASOPHILS 0.4 % (0.1-1.2); EOSINOPHILS 1.8 % (0.7-5.8); LYMPHOCYTES 19.7 % (19.3-51.7); MCH 30.4 PG (25.6-32.2); MCHC 31.7 g/dL (32.2-35.5); MCV 95.8 fL (79.4-94.8); MONOCYTES 7.7 % (4.7-12.5); NEUTROPHILS 70.0 % (34.0-71.1); RBC 3.85 M/uL (3.93-5.22)
[2025-11-19 14:55] LABS: ALT (SGPT) 16.0 U/L (14-59); AST (SGOT) 20.0 U/L (15-37); GLOMERULAR FILTRATION RATE,EST 47.0 mL/min (>60); PROTEIN, TOTAL 8.0 g/dL (6.4-8.2); UREA NITROGEN 22.0 mg/dL (7-18)
[2025-11-19] MEDS ORDERED: HYDROCODONE/ACETA 5/325 TAB PO ONE (15:30)
[2025-11-19] MEDS ORDERED: ONDANSETRON 4 MG TAB ODT SL ONE (15:30)
[2025-11-19] MEDS ORDERED: HYDROCODON-ACE1 EA10 PO (16:35)
[2025-11-19] MEDS ORDERED: ONDANSETRON ODT4 MG PO (16:35)
[2025-11-19 16:47] VITALS: BP 113/70
--- NOTE | 2025-11-21 19:25 | EKG ---
[facility] [address] [facility] [place] [address] Signed Normal sinus rhythm Minimal voltage criteria for LVH, may be normal variant ( R in aVL ) Borderline ECG When compared with ECG of 06-OCT-2025 13:25, T wave inversion now evident in Inferior leads Confirmed by Avila Nascimento MD () on 11/21/2025 7:25:03 PM Electronically Signed By: AVILA NASCIMENTO MD 11/21/25 1925 PATIENT NAME: STAN REED Electrocardiogram DATE OF : 40 PHYSICIAN: AVILA NASCIMENTO MD REPORT #: [id number] REPORT IS CONFIDENTIAL AND NOT TO BE RELEASED WITHOUT AUTHORIZATION
== END 2025-11-19 16:45 | disposition home or self-care (01) ==
LOC: ED 14:04
PROVIDERS: Emergency Medicine
DX: Z48.03 Encounter for change or removal of drains (principal); Z79.899 Other long term (current) drug therapy
CPT/HCPCS: 36415; 71045; 80053; 83735; 84484; 85025; 93005; 93010; 99283-25; A9270